=== PATIENT | male | born 1950 | race Caucasian/White ===

== ENCOUNTER → 2024-06-07 08:12 | Outpatient (REF) | payer MEDICARE, OTHER, SELFPAY | LOC: RAD 08:12 | PROVIDERS: ATTENDING PHYSICIAN Surgery Vascular Surgery; FAMILY PHYSICIAN Internal Medicine | DX: I73.9 Peripheral vascular disease, unspecified (principal) | CPT/HCPCS: 93922; 93925 ==

== ENCOUNTER → 2025-02-19 07:59 | Outpatient (REF) | payer MEDICARE, OTHER, SELFPAY | LOC: WOUND 07:59 | PROVIDERS: ATTENDING PHYSICIAN Surgery; FAMILY PHYSICIAN Internal Medicine | DX: L97.222 Non-pressure chronic ulcer of left calf with fat layer exposed (principal); D49.2 Neoplasm of unspecified behavior of bone, soft tissue, and skin; E11.9 Type 2 diabetes mellitus without complications; Z79.4 Long term (current) use of insulin; I87.2 Venous insufficiency (chronic) (peripheral); I48.11 Longstanding persistent atrial fibrillation; I70.25 Atherosclerosis of native arteries of other extremities with ulceration; Z79.01 Long term (current) use of anticoagulants | CPT/HCPCS: 11104; 11105; 88305; 99204 ==

== ENCOUNTER → 2025-02-26 08:48 | Outpatient (REF) | payer MEDICARE, OTHER, SELFPAY | LOC: WOUND 08:48 | PROVIDERS: ATTENDING PHYSICIAN Surgery; FAMILY PHYSICIAN Internal Medicine | DX: L97.222 Non-pressure chronic ulcer of left calf with fat layer exposed (principal); C44.719 Basal cell carcinoma of skin of left lower limb, including hip; D49.2 Neoplasm of unspecified behavior of bone, soft tissue, and skin; E11.9 Type 2 diabetes mellitus without complications; I87.2 Venous insufficiency (chronic) (peripheral); I70.25 Atherosclerosis of native arteries of other extremities with ulceration; I73.9 Peripheral vascular disease, unspecified; Z79.01 Long term (current) use of anticoagulants; Z79.4 Long term (current) use of insulin | CPT/HCPCS: 99213 ==

== ENCOUNTER → 2025-06-18 09:07 | Outpatient (REF) | payer MEDICARE, OTHER, SELFPAY | LOC: DHVS 09:07 | PROVIDERS: ATTENDING PHYSICIAN Surgery Vascular Surgery; FAMILY PHYSICIAN Internal Medicine | DX: I73.9 Peripheral vascular disease, unspecified (principal) | CPT/HCPCS: 93922 ==